=== PATIENT | female | born 2000 | race African-American/Black ===

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

== ENCOUNTER 2022-01-06 15:41 | Emergency (ER) | payer OTHER ==
[~2022-01-06 15:41] MED LIST changes: +AUGMENTIN 875875 MG PO
== END 2022-01-06 17:39 | disposition home or self-care (01) ==
LOC: ED 15:41
DX: L03.031 Cellulitis of right toe (principal)

== ENCOUNTER 2023-07-18 00:55 | Emergency (ER) | payer SELFPAY ==
[2023-07-18] MEDS ORDERED: ZITHROMAX250 MG PO (02:45)
[2023-07-18] MEDS ORDERED: PREDNISONE20 M1 PO (02:45)
== END 2023-07-18 02:57 | disposition home or self-care (01) ==
LOC: ED 00:55
DX: B34.9 Viral infection, unspecified (principal); Z20.822 Contact with and (suspected) exposure to COVID-19

== ENCOUNTER 2023-08-09 00:18 | Emergency (ER) | payer SELFPAY ==
[~2023-08-09] VITALS: Ht 165.1 cm; Wt 90.7 kg
[~2023-08-09 00:18] MED LIST changes: +PREDNISONE20 M1 PO; +ZITHROMAX250 MG PO
== END 2023-08-09 02:23 | disposition home or self-care (01) ==
LOC: ED 00:18
DX: F41.9 Anxiety disorder, unspecified (principal)

== ENCOUNTER → 2024-01-09 | Outpatient (CLI) | payer OTHER ==
[2024-01-09 08:35] LABS: BASO % 0.6 % (0.0-1.0); EOS # 0.1 10*3/uL (0.0-0.4); EOS % 1.5 % (1.0-4.0); HEMATOCRIT 35.5 % (37.0-47.0); LYMPH # 1.8 10*3/uL (1.3-4.4); LYMPH % 27.3 % (27.0-41.0); MEAN CELL VOLUME 89.6 fl (81.0-99.0); MEAN CORPUSCULAR HGB CONC 31.3 g/dl (33.0-37.0); MEAN PLATELET VOLUME 8.8 fl (9.6-12.3); MONO # 0.7 10*3/uL (0.1-1.0); MONO % 9.8 % (3.0-9.0); NEUT # 4.1 10*3/uL (2.3-7.9); NEUT % 60.7 % (47.0-73.0); PLATELET COUNT AUTOMATED 308 10*3/uL (130-400); RED BLOOD COUNT 3.96 10*6/uL (4.10-5.10); RED CELL DISTRI WIDTH 14.5 % (0-14.5); WHITE BLOOD COUNT 6.7 10*3/uL (4.8-10.8)
[2024-01-09 09:04] LABS: ALKALINE PHOSPHATASE 109 U/L (46-116); BUN 6 mg/dl (9-23); CHLORIDE 107 mmol/L (98-107); CHOLESTEROL 154 mg/dL (<200); CPK 149 U/L (34-171); LDL CHOLESTEROL 88 mg/dL (9-159); POTASSIUM 3.7 mmol/L (3.4-5.1); SGPT/ALT 13 U/L (5-49); TRIGLYCERIDES 75 mg/dl (<150)
[2024-01-09 09:31] LABS: VITAMIN D, 25-HYDROXY 18.4 ng/mL (30-100)
[2024-01-13 15:08] LABS: ALTERNARIA ALTERNATA, IGE <0.10 kU/L (Class 0); AMERICAN ELM, IGE <0.10 kU/L (Class 0); ASPERGILLUS FUMIGATU, IGE <0.10 kU/L (Class 0); BERMUDA GRASS, IGE <0.10 kU/L (Class 0); BIRCH, COMMON SILVER IGE <0.10 kU/L (Class 0); CLADOSPORIUM HERBARU, IGE <0.10 kU/L (Class 0); D FARINAE MITE <0.10 kU/L (Class 0); D PTERONYSSINUS <0.10 kU/L (Class 0); DOG DANDER, IGE <0.10 kU/L (Class 0); MAPLE LEAF SYCAMORE, IGE <0.10 kU/L (Class 0); MAPLE/BOX ELDER, IGE <0.10 kU/L (Class 0); MOUSE URINE IGE <0.10 kU/L (Class 0); PENICILLIUM CHRYSOGENUM, IGE <0.10 kU/L (Class 0); ROUGH PIGWEED, IGE <0.10 kU/L (Class 0); SHEEP SORREL (DOCK), IGE <0.10 kU/L (Class 0); SHORT RAGWEED, IGE <0.10 kU/L (Class 0); TIMOTHY, IGE <0.10 kU/L (Class 0); WALNUT TREE, IGE <0.10 kU/L (Class 0); WHITE ASH, IGE <0.10 kU/L (Class 0); WHITE MULBERRY, IGE <0.10 kU/L (Class 0); WHITE OAK, IGE <0.10 kU/L (Class 0)
[2024-01-13 22:06] LABS: CODFISH, IGE <0.10 kU/L (Class 0); EGG WHITE, IGE <0.10 kU/L (Class 0); MILK (COW), IGE <0.10 kU/L (Class 0); PEANUT, IGE <0.10 kU/L (Class 0); SOYBEAN, IGE <0.10 kU/L (Class 0); WHEAT, IGE <0.10 kU/L (Class 0)
== END | disposition home or self-care (01) ==
LOC: LAB 07:54
PROVIDERS: ATTEND Pediatrics
DX: R10.9 Unspecified abdominal pain (principal); D64.9 Anemia, unspecified; E66.9 Obesity, unspecified; J30.2 Other seasonal allergic rhinitis

== ENCOUNTER 2024-09-18 15:10 | Emergency (ER) | payer OTHER ==
[~2024-09-18] VITALS: Ht 167.6 cm; Wt 90.7 kg
[2024-09-18 16:10] LABS: BASO % 0.3 % (0.0-1.0); HEMATOCRIT 36.6 % (37.0-47.0); MEAN CELL VOLUME 93.1 fl (81.0-99.0); MEAN CORPUSCULAR HGB 30.8 pg (27.0-31.0); MEAN CORPUSCULAR HGB CONC 33.1 g/dl (33.0-37.0); MEAN PLATELET VOLUME 8.5 fl (9.6-12.3); MONO % 14.1 % (3.0-9.0); NEUT # 5.2 10*3/uL (2.3-7.9); NEUT % 75.7 % (47.0-73.0); PLATELET COUNT AUTOMATED 230 10*3/uL (130-400); RED BLOOD COUNT 3.93 10*6/uL (4.10-5.10); RED CELL DISTRI WIDTH 13.5 % (0-14.5); WHITE BLOOD COUNT 6.8 10*3/uL (4.8-10.8)
[2024-09-18 16:33] LABS: BUN 8 mg/dl (9-23); CHLORIDE 105 mmol/L (98-107); POTASSIUM 3.3 mmol/L (3.4-5.1)
[2024-09-18] MEDS ORDERED: TAMIFLU 75MG CA75 MG PO (16:43)
[2024-09-18] MEDS ORDERED: Oseltamivir Phosphate 75 MG CAP PO ONE (16:45)
== END 2024-09-18 18:33 | disposition home or self-care (01) ==
LOC: ED 15:10
PROVIDERS: Nurse Practitioner Family
DX: J10.1 Influenza due to other identified influenza virus with other respiratory manifestations (principal); Z20.822 Contact with and (suspected) exposure to COVID-19